=== PATIENT | female | born 1945 | race Caucasian/White ===

== ENCOUNTER 2022-05-25 08:00 | Day surgery (SDC) | payer OTHER ==
--- NOTE | 2022-05-23 17:24 | EKG ---
Test Date: 2022-05-22 Test Time: 12:59:08 Book Canvasser: TAMIE MEASUREMENT RESULTS: Intervals: Rate: 71 PA: 146 QRSD: 76 QT: 380 QTc: 412 [place]: P: 17 PA: 146 QRS: -1 T: 7 INTERPRETIVE STATEMENTS: Normal sinus rhythm Low voltage QRS Septal infarct, age undetermined Abnormal ECG Compared to ECG 03/11/2003 16:07:00 Low QRS voltage now present Ventricular premature complex(es) no longer present Myocardial infarct finding still present Electronically Signed On 05-23-22 17:21:48 CDT by Moncho Jenkins
[2022-05-25] MEDS ORDERED: Ringers Lactate 1,000 ML IV ONE (08:24)
[2022-05-25] MEDS ORDERED: ACETAMINOPHEN 500 MG TAB ONE (08:46)
--- NOTE | 2022-05-25 09:25 | P.PN ---
Date of Service: 05/25/22 Upon interview with the anesthesiologist, the patient noted some dyspnea on exertion and in consultation with the anesthesia and surgical team, it was felt to be in the patient's best interest to delay her surgery in order to obtain cardiac clearance given remote history of myocardial infarction. The patient will follow-up with her personal vessel scrapper on an outpatient basis and we will reschedule her surgery once she is appropriately cleared from medical standpoint.
[2022-05-25 10:19] VITALS: BP 142/75; TEMP 97.6; O2SAT 99
== END 2022-05-25 09:20 | disposition home or self-care (01) ==
LOC: OR 08:00
PROVIDERS: ATTEND Otolaryngology
DX: Q89.2 Congenital malformations of other endocrine glands (principal); Z53.09 Procedure and treatment not carried out because of other contraindication; R06.00 Dyspnea, unspecified; I25.2 Old myocardial infarction; I25.10 Atherosclerotic heart disease of native coronary artery without angina pectoris; I10 Essential (primary) hypertension; E03.9 Hypothyroidism, unspecified; K21.9 Gastro-esophageal reflux disease without esophagitis; Z79.02 Long term (current) use of antithrombotics/antiplatelets; Z79.899 Other long term (current) drug therapy; Z88.5 Allergy status to narcotic agent; Z88.8 Allergy status to other drugs, medicaments and biological substances; Z95.5 Presence of coronary angioplasty implant and graft; Z85.828 Personal history of other malignant neoplasm of skin; Z90.49 Acquired absence of other specified parts of digestive tract; Z90.710 Acquired absence of both cervix and uterus; Z80.0 Family history of malignant neoplasm of digestive organs; Z83.3 Family history of diabetes mellitus
CPT/HCPCS: 93005; J7120

== ENCOUNTER 2024-03-12 12:16 | Emergency (ER) | payer OTHER ==
--- NOTE | 2024-03-12 13:26 | RAD REPORT ---
EXAMINATION: ONE VIEW CHEST XR CLINICAL INDICATION: SOB TECHNIQUE: Frontal chest projection is submitted. Examination is limited by patient positioning and t echnique. COMPARISON: 01/30/2016 FINDINGS: The lungs are well inflated and clear. The heart is normal in size. No displaced fractures identified . IMPRESSION: No acute intrathoracic abnormalities.
[2024-03-12 14:38] LABS: Protime INR 1.07
[2024-03-12 14:39] LABS: Absolute Eosinophils 0.2 K/uL (0-0.5); Absolute Lymphocytes (CBC) 1.9 K/uL (0.7-4.9); Absolute Monocytes 0.5 K/uL (0.1-1.3); Absolute Neutrophil 6.5 K/uL (1.8-8.0); Basophils % 0.3 % (0-1.3); Eosinophils % 1.7 % (0-4.4); Hematocrit 38.6 % (36.0-45.0); Hemoglobin 13.1 g/dL (12.0-15.0); Lymphocytes % 20.5 % (15.3-44.8); MCH 33.1 pg (27.0-35.0); MCV 97.3 fL (80-100); MPV 7.4 fL (7.6-11.3); Monocytes % 6.1 % (3.3-12.3); Neutrophils % 71.4 % (41.7-73.7); Nucleated Red Blood Cells % 0.1 % (0-0); Platelets 356 thou/uL (152-406); RBC Red Blood Cell Count 3.96 M/uL (3.86-4.86); Red Cell Distribution Width 13.3 % (12.1-15.2)
[2024-03-12 14:49] LABS: Anion Gap 9.6 mEq/L (5.0-15.0); Potassium 3.6 mEq/L (3.5-5.1); Troponin High Sensitivity 4.9 pg/mL (<58.9)
--- NOTE | 2024-03-12 14:56 | ER ---
Nurse's Notes [facility] Name: Celestina Edouard Age: 78 yrs Sex: Female : 1945 Arrival Date: 03/12/2024 Time: 12:16 Bed 5 Private MD: Diagnosis: Essential (primary) hypertension Presentation: 03/12 13:05 Chief complaint:. Coronavirus screen: Client denies travel out of the [place] in the last ss 14 days. Ebola Screen: Patient denies exposure to infectious person. Patient denies travel to an Ebola-affected area in the 21 days before illness onset. Initial Sepsis Screen: Does the patient meet any 2 criteria? No. Patient's initial sepsis screen is negative. Does the patient have a suspected source of infection? No. Patient's initial sepsis screen is negative. Risk Assessment: Do you want to hurt yourself or someone else? Patient reports no desire to harm self or others. Onset of symptoms was March 12, 2024. 13:05 Method Of Arrival: Ambulatory ss 13:05 Acuity: DEMETRIO 2 ss 13:07 Chief complaint: Patient states: "I had lab work today and they took my blood pressure ss and it was 207/99 and said it was too high and to come to the hospital.". Triage Assessment: 13:05 General: Appears in no apparent distress. Behavior is cooperative, appropriate for age, bp anxious. Pain: Denies pain. EENT: No deficits noted. Neuro: Reports dizziness. Cardiovascular: No deficits noted. Respiratory: No deficits noted. GI: No signs and/or symptoms were reported involving the gastrointestinal system. : No signs and/or symptoms were reported regarding the genitourinary system. Derm: No deficits noted. Musculoskeletal: No deficits noted. Historical: - Allergies: 13:07 Compazine; ss 13:07 Morphine; ss - PMHx: 13:07 High blood pressure; [place]; ss - PSHx: 13:07 hysterectomy; carpal tunnel; Tonsillectomy; ss - Immunization history:: Adult Immunizations up to date. - Infectious Disease History:: Denies. - Social history:: Smoking status: Patient denies any tobacco usage or history of. Screenin:05 [facility] ED Fall Risk Assessment (Adult) History of falling in the last 3 months, bp including since admission No falls in past 3 months (0 pts). [facility] ED Fall Risk Assessment (Adult) Confusion or Disorientation No (0 pts) Intoxicated or Sedated No (0 pts) Impaired Gait No (0 pts) Mobility Assist Device Used No (0 pt) Altered Elimination No (0 pt) Score/Fall Risk Level 0 - 2 = Low Risk Oriented to surroundings. Abuse screen: Denies threats or abuse. Denies injuries from another. Nutritional screening: No deficits noted. Tuberculosis screening: No symptoms or risk factors identified. Assessment: 13:05 General: Appears in no apparent distress. Behavior is cooperative, appropriate for age, bp anxious. Vital Signs: 13:01 Pulse 88; Resp 16; Temp 98.1(TE); Pulse Ox 100% ; ss 13:06 BP 192 / 89 LA Sitting; Weight 65.32 kg; Height 5 ft. 5 in. ; ss 15:36 BP 141 / 68; Pulse 73; Resp 16; Pulse Ox 98% ; bp 13:06 Body Mass Index 23.96 (65.32 kg, 165.1 cm) ED Course: 12:18 Patient arrived in ED. sj2 12:28 Beverly Rider MD is Attending Physician. gb1 13:01 Arm band placed on right wrist. ss 13:06 Triage completed. ss 13:23 XRAY Chest (1 view) In Process Unspecified. EDMS 14:26 Initial lab(s) drawn, by me, sent to lab. Inserted saline lock: 22 gauge in left ap3 antecubital area, using aseptic technique. Blood collected. Flushed with 10 mL NS. 14:31 Damian Rosa, RN is Primary Nurse. bp 15:36 Patient has correct armband on for positive identification. bp 15:36 No provider procedures requiring assistance completed. IV discontinued, intact, bp bleeding controlled, No redness/swelling at site. Pressure dressing applied. Administered Medications: No medications were administered Medication: 15:36 VIS not applicable for this client. bp Outcome: 14:56 Discharge ordered by . gb1 15:36 Discharged to home ambulatory, with family, bp 15:36 Condition: stable 15:36 Discharge instructions given to patient, Instructed on discharge instructions, follow up and referral plans. Demonstrated understanding of instructions, follow-up care, 15:38 Patient left the ED. bp Signatures: Dispatcher [employer] EDMS Gregoria Valencia RN RN ss Damian Rosa RN RN bp Barbi Macedo RN RN ap3 Beverly Rider MD MD gb1 Addie Skinner 2 Corrections: (The following items were deleted from the chart) 15:36 13:05 BP 141 / 68; Pulse 73bpm; Resp 16bpm; Pulse Ox 98%; bp bp
--- NOTE | 2024-03-12 14:56 | EDPHYS ---
Physician Documentation [facility] Name: Celestina Edouard Age: 78 yrs Sex: Female : 1945 Arrival Date: 03/12/2024 Time: 12:16 Bed 5 Private MD: ED Physician Beverly Rider HPI: 03/12 14:56 This 78 yrs old Female presents to ER via Ambulatory with complaints of High Blood gb1 Pressure, Dizziness. 14:56 78-year-old female with dizziness and elevated blood pressure at home. She has a gb1 history of hypertension and is taking 2 medications that are not new.. Patient stated she has had some headaches no chest pain or shortness of breath. Sometimes on standing she gets little dizzy. She denies any fever, cough or chills.. Historical: - Allergies: 13:07 Compazine; ss 13:07 Morphine; ss - PMHx: 13:07 High blood pressure; [place]; ss - PSHx: 13:07 hysterectomy; carpal tunnel; Tonsillectomy; ss - Immunization history:: Adult Immunizations up to date. - Infectious Disease History:: Denies. - Social history:: Smoking status: Patient denies any tobacco usage or history of. Exam: 14:56 Constitutional: This is a well developed, well nourished patient who is awake, alert, gb1 and in no acute distress. Head/Face: Normocephalic, atraumatic. Eyes: Pupils equal round and reactive to light, extra-ocular motions intact. Lids and lashes normal. Conjunctiva and sclera are non-icteric and not injected. Cornea within normal limits. Periorbital areas with no swelling, redness, or edema. ENT: Nares patent. No nasal discharge, no septal abnormalities noted. Tympanic membranes are normal and external auditory canals are clear. Oropharynx with no redness, swelling, or masses, exudates, or evidence of obstruction, uvula midline. Mucous membranes moist. Neck: Trachea midline, no thyromegaly or masses palpated, and no cervical lymphadenopathy. Supple, full range of motion without nuchal rigidity, or vertebral point tenderness. No Meningismus. Chest/axilla: Normal chest wall appearance and motion. Nontender with no deformity. No lesions are appreciated. Cardiovascular: Regular rate and rhythm with a normal S1 and S2. No gallops, murmurs, or rubs. Normal PMI, no JVD. No pulse deficits. Respiratory: Lungs have equal breath sounds bilaterally, clear to auscultation and percussion. No rales, rhonchi or wheezes noted. No increased work of breathing, no retractions or nasal flaring. Abdomen/GI: Soft, non-tender, with normal bowel sounds. No distension or tympany. No guarding or rebound. No evidence of tenderness throughout. Skin: Warm, dry with normal turgor. Normal color with no rashes, no lesions, and no evidence of cellulitis. MS/ Extremity: Pulses equal, no cyanosis. Neurovascular intact. Full, normal range of motion. Neuro: Awake and alert, GCS 15, oriented to person, place, time, and situation. Cranial nerves II-XII grossly intact. Motor strength 5/5 in all extremities. Sensory grossly intact. Cerebellar exam normal. Normal gait. Vital Signs: 13:01 Pulse 88; Resp 16; Temp 98.1(TE); Pulse Ox 100% ; ss 13:06 BP 192 / 89 LA Sitting; Weight 65.32 kg; Height 5 ft. 5 in. ; ss 15:36 BP 141 / 68; Pulse 73; Resp 16; Pulse Ox 98% ; bp 13:06 Body Mass Index 23.96 (65.32 kg, 165.1 cm) ss MDM: 13:11 Medical Screening Exam initiated gb1 14:56 Data reviewed: vital signs, nurses notes, lab test result(s), EKG, Patient's EKG that gb1 was done at 1451 on 12 March 2024 shows normal sinus rhythm at 71 bpm with some nonspecific ST-T wave changes in leads V2 through V6. No reciprocal changes. Patient does have inverted T wave in lead aVR.. 14:56 ED course: 78-year-old female with history of hypertension presents with dizziness and gb1 elevated blood pressure at home. Patient denies any chest pain or shortness of breath I doubt NSTEMI, PE or pneumonia at this time. No signs of endorgan endorgan damage on the patient's lab her creatinine is within normal limits. Her blood pressure is improved 158/74 on time of discharge, she is asymptomatic and feeling much better. I have given her expressive return precautions to follow-up with her primary care doctor and take her blood pressure and keep a log for 7 days for at least 2 readings a day to end up with 14 readings. I recommend a medication reconciliation as well as her primary care doctor and I given her close return precautions for sudden onset headache, chest pain or shortness of breath patient is compliant with this plan of care at time of discharge.. 03/12 12:29 Order name: Basic Metabolic Panel; Complete Time: 14:52 03/12 12:29 Order name: CBC with Diff; Complete Time: 14:52 03/12 12:29 Order name: NT PRO-BNP; Complete Time: 14:52 03/12 12:29 Order name: PT-INR; Complete Time: 14:52 03/12 12:29 Order name: Troponin HS; Complete Time: 14:52 03/12 12:29 Order name: XRAY Chest (1 view); Complete Time: 13:37 03/12 12:29 Order name: Cardiac monitoring; Complete Time: 14:31 03/12 12:29 Order name: EKG - Nurse/Tech; Complete Time: 15:05 03/12 12:29 Order name: IV Saline Lock; Complete Time: 14:26 03/12 12:29 Order name: Labs collected and sent; Complete Time: 14:26 03/12 12:29 Order name: O2 Per Protocol; Complete Time: 14:31 03/12 12:29 Order name: O2 Sat Monitoring; Complete Time: 14:31 gb Administered Medications: No medications were administered Disposition Summary: 03/12/24 14:56 Discharge Ordered Notes: Location: Home gb1 Problem: chronic gb1 Symptoms: have improved gb1 Condition: Stable gb1 Diagnosis - Essential (primary) hypertension gb1 Followup: gb1 - With: Private Physician - When: - Reason: Recheck today's complaints Discharge Instructions: - Discharge Summary Sheet gb1 - How to Take Your Blood Pressure, [id number] gb1 Forms: - Medication Reconciliation Form gb1 - Antibiotic Education gb1 - Prescription Opioid Use gb1 - Patient Portal Instructions gb1 - Leadership Thank You Letter gb1 Signatures: Dispatcher [employer] Gregoria Segura RN RN ss Peltier, Brian, RN RN bp Beverly Rider MD MD gb1 Corrections: (The following items were deleted from the chart) 12: 12:29 BASIC METABOLIC PANEL+C.LAB.BRZ ordered. EDMS EDMS : 12: CBC+H.LAB.BRZ ordered. EDMS EDMS : 12:29 PROBNP+C.LAB.BRZ ordered. EDMS EDMS : 12:29 PROTIME (+INR)+COAG.LAB.BRZ ordered. EDMS EDMS : 12:29 Troponin High Sensitivity+C.LAB.BRZ ordered. EDMS EDMS : 12:29 Chest Single View+RAD.RAD.BRZ ordered. EDMS EDMS
[2024-03-12 15:52] VITALS: TEMP 98.1
[2024-03-12 16:03] VITALS: BP 141/68; O2SAT 98
--- NOTE | 2024-03-16 10:55 | EKG ---
Test Date: 2024-03-12 Test Time: 14:51:22 Religious Healer: RAUL MEASUREMENT RESULTS: Intervals: Rate: 71 NM: 164 QRSD: 76 QT: 378 QTc: 410 [place]: P: 41 NM: 164 QRS: 3 T: 34 INTERPRETIVE STATEMENTS: Normal sinus rhythm Possible Anterior infarct, age undetermined Abnormal ECG Compared to ECG 05/22/2022 12:59:08 No significant changes Electronically Signed On 03-16-24 10:51:13 WOOD CARVING MACHINE OPERATOR by Yordan Doan
== END 2024-03-12 15:38 | disposition home or self-care (01) ==
LOC: ER 12:16
DX: I10 Essential (primary) hypertension (principal)
CPT/HCPCS: 36415; 71045; 80048; 83880; 84484; 85025; 85610; 93005; 99283